=== PATIENT | female | born 1960 | race Caucasian/White ===

== ENCOUNTER 2017-01-26 04:14 | Inpatient (IN) | payer OTHER ==
[~2017-01-26] VITALS: Ht 165.1 cm; Wt 86.1 kg
[2017-01-26] VITALS (9 sets, daily range): BP systolic 102–149; BP diastolic 66–99; PULSE 66–79; RESP 16–21; TEMP 96.7–98.6; O2SAT 87–100
[2017-01-26] MEDS ORDERED: SODIUM CHLOR 0.9% 1000 ML INJ 1,000 ML IV SCH (04:22)
[2017-01-26] MEDS ORDERED: ONDANSETRON HCL 4 MG/2 ML VIAL ONE (04:22)
[2017-01-26] MEDS ORDERED: MULT1TAB46 (04:24)
--- NOTE | 2017-01-26 04:25 | PD ---
HPI Chief Complaint: abdominal pain Time Seen by Provider: 04:22 Travel History International Travel<30 days: No Contact w/Intl Traveler<30days: No Traveled to known affect area: No History of Present Illness HPI 56-year-old female presents to the emergency department by EMS transport for complaint of abdominal pain and vomiting since 8 PM on Friday evening. Bowel movement was on Friday. No report of hematemesis coffee-ground emesis melena or hematochezia. No reported fever or chills. No report of dietary indiscretion well water ingestion or foreign travel. Patient received Zofran en route by EMS during transport. Random glucose was 169. Patient denies any chronic medical conditions or chronic medication use or prescription medication use. Patient has had tubal ligation in the past and dental surgery. Visiting from [place]. Pain 03/20. Unable to identify alleviating factors unable to tolerate oral hydration. PFSH Past Medical History Narrative Medical Tubal ligation, tonsillectomy, dental surgery; nursing notes reviewed Social History Tobacco Use: Yes Allergies-Medications (Allergen,Severity, Reaction): Coded Allergies: Penicillin (Verified Allergy, Severe, 01/26/17) Reported Meds & Prescriptions Reported Meds & Active Scripts Active Reported Multi Vitamin Daily (Multiple Vitamin) 1 Tab Tab Narrative Medication No prescription medications Review of Systems Except as stated in HPI: all other systems reviewed are Neg General / Constitutional: No: Fever, Chills HENT: No: Congestion Cardiovascular: No: Chest Pain or Discomfort Respiratory: No: Shortness of Breath Gastrointestinal: Positive: Nausea, Vomiting, No: Loss of Appetite Genitourinary: No: Dysuria, Flank Pain Musculoskeletal: No: Myalgias, Arthralgias Skin: No Rash Neurologic: No: Weakness Psychiatric: No: Anxiety Hematologic/Lymphatic: No: Lymph Node Enlargement Physical Exam Narrative GENERAL: Well-developed well-nourished ill-appearing female in no acute respiratory distress holding emesis bag SKIN: Warm and dry. HEAD: Normocephalic. EYES: No scleral icterus. No injection or drainage. NECK: Supple, trachea midline. No JVD or lymphadenopathy. CARDIOVASCULAR: Regular rate and rhythm without murmurs, gallops, or rubs. RESPIRATORY: Breath sounds equal bilaterally. No accessory muscle use. GASTROINTESTINAL: Abdomen soft, diffusely tender primarily periumbilically, no guarding no rebound, nondistended. MUSCULOSKELETAL: No cyanosis, or edema. BACK: Nontender without obvious deformity. No CVA tenderness. Data Data Last Documented VS Vital Signs Date Time Temp Pulse Resp B/P Pulse Ox O2 Delivery O2 Flow Rate FiO2 01/26/17 06:00 79 16 148/66 100 Nasal Cannula 2 01/26/17 04:21 98.6 Orders Ondansetron Inj (Zofran Inj) (01/26/17 04:22) Ondansetron Inj (Zofran Inj) (01/26/17 04:30) Complete Blood Count With Diff (01/26/17 04:22) Comprehensive Metabolic Panel (01/26/17 04:22) Lipase (01/26/17 04:22) Urinalysis - C+S If Indicated (01/26/17 04:22) Iv Access Insert/Monitor (01/26/17 04:22) Ecg Monitoring (01/26/17 04:22) Oximetry (01/26/17 04:22) Sodium Chlor 0.9% 1000 Ml Inj (Ns 1000 M (01/26/17 04:22) Sodium Chloride 0.9% Flush (Ns Flush) (01/26/17 04:30) Electrocardiogram (01/26/17 04:22) Chest, Single Ap (01/26/17 04:22) Ct Abd/Pel W Iv Contrast(Rout) (01/26/17 ) Morphine Inj (Morphine Inj) (01/26/17 04:30) Iohexol 350 Inj (Omnipaque 350 Inj) (01/26/17 05:35) Morphine Inj (Morphine Inj) (01/26/17 05:45) Admit Order (Ed Use Only) (01/26/17 ) ^ Saline Lock (01/26/17 06:18) Resp Oxygen Jose Angel C Titrat 1-4 L (01/26/17 ) Notify Dr: Other (01/26/17 06:18) Sodium Chloride 0.9% Flush (Ns Flush) (01/26/17 09:00) Sodium Chloride 0.9% Flush (Ns Flush) (01/26/17 06:30) Labs Laboratory Tests Test 01/26/17 01/26/17 04:30 06:15 White Blood Count 16.1 TH/MM3 Red Blood Count 4.32 MIL/MM3 Hemoglobin 13.9 GM/DL Hematocrit 40.1 % Mean Corpuscular Volume 92.7 FL Mean Corpuscular Hemoglobin 32.2 PG Mean Corpuscular Hemoglobin 34.7 % Concent Red Cell Distribution Width 14.1 % Platelet Count 307 TH/MM3 Mean Platelet Volume 10.0 FL Neutrophils (%) (Auto) 84.5 % Lymphocytes (%) (Auto) 12.6 % Monocytes (%) (Auto) 2.4 % Eosinophils (%) (Auto) 0.0 % Basophils (%) (Auto) 0.5 % Neutrophils # (Auto) 13.6 TH/MM3 Lymphocytes # (Auto) 2.0 TH/MM3 Monocytes # (Auto) 0.4 TH/MM3 Eosinophils # (Auto) 0.0 TH/MM3 Basophils # (Auto) 0.1 TH/MM3 CBC Comment DIFF FINAL Differential Comment Sodium Level 141 MEQ/L Potassium Level 3.5 MEQ/L Chloride Level 107 MEQ/L Carbon Dioxide Level 20.1 MEQ/L Anion Gap 14 MEQ/L Blood Urea Nitrogen 15 MG/DL Creatinine 0.86 MG/DL Estimat Glomerular Filtration 69 ML/MIN Rate Random Glucose 151 MG/DL Calcium Level 8.9 MG/DL Total Bilirubin 0.4 MG/DL Aspartate Amino Transf 25 U/L (AST/SGOT) Alanine Aminotransferase 25 U/L (ALT/SGPT) Alkaline Phosphatase 76 U/L Total Protein 7.4 GM/DL Albumin 3.9 GM/DL Lipase 118 U/L Urine Color YELLOW Urine Turbidity CLEAR Urine pH 8.5 Urine Specific [place] GREATER THAN 1.050 Urine Protein 30 mg/dL Urine Glucose (UA) NEG mg/dL Urine Ketones 40 mg/dL Urine Occult Blood NEG Urine Nitrite NEG Urine Bilirubin NEG Urine Urobilinogen LESS THAN 2.0 MG/DL Urine Leukocyte Esterase NEG Urine RBC 2 /hpf Urine WBC LESS THAN 1 /hpf Urine Squamous Epithelial 1 /hpf Cells Microscopic Urinalysis Comment CULT NOT INDICATED MDM Medical Decision Making Medical Screen Exam Complete: Yes Emergency Medical Condition: Yes Medical Record Reviewed: Yes Interpretation(s) EKG: Normal sinus rhythm rate [address] elevation or injury pattern or ectopy noted nonspecific T-wave septally CBC & BMP Diagram 01/26/17 04:30 Vital Signs Date Time Temp Pulse Resp B/P Pulse Ox O2 Delivery O2 Flow Rate FiO2 01/26/17 04:21 98.6 78 20 144/99 100 UA: elevated sg greater than 1.035 Differential Diagnosis Abdominal pain, biliary colic, pancreatitis, gastritis, peptic ulcer disease, colitis, diverticulitis, appendicitis, bowel obstruction, renal colic Narrative Course IV access obtained by EMS specimens collected and sent for resulting patient administered 1 L normal saline additional 4 mg Zofran administered IV At 5:27 AM patient is in CT for imaging Patient is return from CT reports that pain is again returning no further nausea or vomiting after Zofran IV in the emergency department and one-time dose by EMS en route to the hospital; patient has received a liter of normal saline. Patient reports pain is becoming more infraumbilical. Pain is remaining midline. Tender to palpation without guarding or rebound. CT imaging reported as consistent with possible early small bowel obstruction. Patient with leukocytosis vomiting without bowel movement imaging study consistent with possible early small bowel obstruction(/ileus) well discussed with medicine regarding admission for bowel rest as needed anti-medic and pain medication with patient aware that should symptoms persist or worsen will require placement of NG tube to intermittent low wall suction and surgical consult. Sepsis Criteria SIRS Criteria (2 or more): WBC > 62805, < 4000 or > 10% bands Physician Communication Physician Communication call placed to [facility] obs --early sbo Diagnosis Primary Impression: Small bowel obstruction, partial Admitting Information Admitting Physician Requests: Observation Gladys Pritchard MD Jan 26, 2017 04:25
[2017-01-26] MEDS ORDERED: ONDANSETRON HCL 4 MG/2 ML VIAL IV PUSH ONE (04:30)
[2017-01-26] MEDS ORDERED: SODIUM CHLORIDE 0.9% FLUSH 10 ML FLUSH IV FLUSH PRN ×2 (04:30→06:30)
[2017-01-26] MEDS ORDERED: MORPHINE SULFATE 4 MG/ML INJ IV PUSH ONE ×2 (04:30→05:45)
[2017-01-26 04:47] LABS: AUTOMATED NEUTROPHIL # 13.6 TH/MM3 (1.8-7.7); BASOPHIL # 0.1 TH/MM3 (0-0.2); BASOPHIL % 0.5 % (0.0-2.0); HEMATOCRIT 40.1 % (35.0-46.0); HEMO FLAGS DIFF FINAL; LYMPH % 12.6 % (9.0-44.0); MEAN CELL VOLUME 92.7 FL (80.0-100.0); MEAN CORPUSCULAR HEMOGLOBIN 32.2 PG (27.0-34.0); MEAN CORPUSCULAR HGB CONC 34.7 % (32.0-36.0); MONO % 2.4 % (0.0-8.0); NEUT % 84.5 % (16.0-70.0); PLATELET COUNT 307 TH/MM3 (150-450); RED BLOOD COUNT 4.32 MIL/MM3 (4.00-5.30); RED CELL DISTRIBUTION WIDTH 14.1 % (11.6-17.2); WHITE BLOOD COUNT 16.1 TH/MM3 (4.0-11.0)
--- NOTE | 2017-01-26 04:58 | RADRPT ---
EXAM DATE/TIME: 01/26/2017 04:18 [facility] COMPARISON: No previous studies available for comparison. INDICATIONS : Pt has had nausea with vomiting and abdominal pain since 20:00 last night. MEDICAL HISTORY : None. SURGICAL HISTORY : Tubal ligation. ENCOUNTER: Initial ACUITY: 1 day PAIN SCORE: 9/10 LOCATION: Bilateral chest FINDINGS: Single upright AP view of the chest. Lungs are clear. Cardiomediastinal silhouette within normal limi ts. No evidence of pleural effusion or pneumothorax. No evidence of free air under the diaphragm. CONCLUSION: No acute cardiopulmonary disease identified. Sukhdev Cash MD on January 26, 2017 at 4:55 Board Certified Radiologist. This report was verified electronically.
[2017-01-26 05:12] LABS: ANION GAP 14 MEQ/L (5-15); AST (GOT) 25 U/L (15-37); BICARBONATE 20.1 MEQ/L (21.0-32.0); BLOOD UREA NITROGEN 15 MG/DL (7-18); CHLORIDE 107 MEQ/L (98-107); GLOMERULAR FILTRATION RATE 69 ML/MIN (>89); POTASSIUM 3.5 MEQ/L (3.5-5.1); SODIUM (NA) 141 MEQ/L (136-145)
[2017-01-26 05:16] LABS: ALKALINE PHOSPHATASE 76 U/L (45-117); ALT (GPT) 25 U/L (10-53); TOTAL BILIRUBIN ADULT 0.4 MG/DL (0.2-1.0)
[2017-01-26] MEDS ORDERED: IOHEXOL 350 MG/ML 10 ML VIAL (for RAD DIAG) IV ONE (05:35)
--- NOTE | 2017-01-26 06:00 | RADRPT ---
EXAM DATE/TIME: 01/26/2017 05:32 [facility] COMPARISON: No previous studies available for comparison. INDICATIONS : Abdomen pain with vomiting. IV CONTRAST: 96 cc Omnipaque 350 (iohexol) IV ORAL CONTRAST: No oral contrast ingested. RADIATION DOSE: 4.48 CTDIvol (mGy) MEDICAL HISTORY : None SURGICAL HISTORY : None. ENCOUNTER: Initial ACUITY: 1 day PAIN SCALE: 8/10 LOCATION: abdomen TECHNIQUE: Volumetric scanning of the abdomen and pelvis was performed. Using automated exposure control and ad justment of the mA and/or kV according to patient size, radiation dose was kept as low as reasonably achievable to obtain optimal diagnostic quality images. FINDINGS: LOWER LUNGS: The visualized lower lungs are clear. LIVER: Homogeneous density without lesion. There is no dilation of the biliary tree. No calcified gallston es. SPLEEN: Normal size without lesion. PANCREAS: Within normal limits. KIDNEYS: Normal in size and shape. There is no mass, stone or hydronephrosis. ADRENAL GLANDS: Within normal limits. VASCULAR: There is no aortic aneurysm. BOWEL/MESENTERY: Multiple fluid filled mildly dilated loops of mid small bowel measuring up to 2.6 cm in diameter. The re is a transition point in the distal small bowel is decompressed. Proximal small bowel is also norm al diameter. Appendix within normal limits. No evidence of free air. Small amount of free fluid in th e dependent portion of the pelvis. ABDOMINAL WALL: Within normal limits. RETROPERITONEUM: There is no lymphadenopathy. BLADDER: No wall thickening or mass. REPRODUCTIVE: Within normal limits. INGUINAL: There is no lymphadenopathy or hernia. MUSCULOSKELETAL: Degenerative findings of the lumbar spine facet joints and left sacroiliac joint. CONCLUSION: Mild fluid filled dilatation of multiple mid small bowel loops with a transition point and decompress ed distal small bowel. Findings are suspicious for early small bowel obstruction. Sukhdev Cash MD on January 26, 2017 at 5:50 Board Certified Radiologist. This report was verified electronically.
[2017-01-26] MEDS ORDERED: BISACODYL 10 MG SUPP RECTAL PRN (06:30)
[2017-01-26] MEDS ORDERED: MORPHINE SULFATE 4 MG/ML INJ IV PRN (06:30)
[2017-01-26] MEDS ORDERED: MAGNESIUM HYDROXIDE SUSP 30 ML CUP PO PRN (06:30)
[2017-01-26] MEDS ORDERED: SENNOSIDES 8.6 MG TAB PO PRN (06:30)
[2017-01-26] MEDS ORDERED: ACETAMINOPHEN 1000 MG/100 ML VIAL IV PRN (06:30)
[2017-01-26] MEDS ORDERED: PANTOPRAZOLE SODIUM 40 MG VIAL IV PUSH ONE (06:30)
[2017-01-26] MEDS ORDERED: SODIUM CHLORIDE 0.9% FLUSH 10 ML FLUSH IVF PRN (06:30)
[2017-01-26] MEDS ORDERED: LACTULOSE SYRUP 20 GM/30 ML CUP PO PRN (06:30)
[2017-01-26] MEDS: SODIUM CHLOR 0.9% 1000 ML INJ 1,000 ML IV SCH ×3 (06:47→20:24)
[2017-01-26 06:58] LABS: BLOOD, URINE NEG (NEG); GLUCOSE,URINE NEG (NEG); KETONE, URINE 40 mg/dL (NEG); NITRITE,URINE NEG (NEG); PH, URINE 8.5 (5.0-8.5); SQUAMOUS EPITHELIAL CELL URINE 1 /hpf (0-5); URINE COLOR YELLOW (YELLW/STRAW)
[2017-01-26 06:59] LABS: COMMENT (UR) CULT NOT INDICATED; CULTURE IF INDICATED CULT NOT INDICATED
[2017-01-26] MEDS: DOCUSATE SODIUM 50 MG/SENNA 8.6 MG TAB PO SCH ×2 (09:00→20:21)
[2017-01-26] MEDS ORDERED: SODIUM CHLORIDE 0.9% FLUSH 10 ML FLUSH IV FLUSH SCH (09:00)
[2017-01-26] MEDS: CIPROFLOXACIN 400 MG PREMIX 200 ML IV SCH ×2 (09:15→20:20)
[2017-01-26] MEDS: metroNIDAZOLE 500 MG INJ 100 ML IV SCH ×2 (09:16→14:44)
[2017-01-26] MEDS: SODIUM CHLORIDE 0.9% FLUSH 10 ML FLUSH IV FLUSH SCH ×2 (09:16→20:24)
[2017-01-26] MEDS: MORPHINE SULFATE 4 MG/ML INJ IV PRN ×3 (09:30→18:28)
--- NOTE | 2017-01-26 12:11 | EKG ---
Date Performed: 01/26/2017 Time Performed: 04:36:09 PTAGE: 56 years EKG: Sinus rhythm NORMAL ECG NO PREVIOUS TRACING DOCTOR: Benito Payne Interpretating Date/Time 01/26/2017 12:09:58
[2017-01-26] MEDS: ONDANSETRON HCL 4 MG/2 ML VIAL IVP PRN (14:50)
[2017-01-26] MEDS: PANTOPRAZOLE SODIUM 40 MG VIAL IV PUSH SCH (20:20)
[2017-01-27] MEDS: MORPHINE SULFATE 4 MG/ML INJ IV PRN ×4 (00:38→21:40)
[2017-01-27] MEDS: metroNIDAZOLE 500 MG INJ 100 ML IV SCH ×4 (00:40→23:49)
[2017-01-27 00:49] VITALS: BP 128/70; PULSE 75; RESP 17; TEMP 97.6; O2SAT 98
[2017-01-27 04:11] VITALS: BP 123/67; PULSE 80; RESP 17; TEMP 99; O2SAT 96
[2017-01-27 06:21] LABS: AUTOMATED NEUTROPHIL # 10.3 TH/MM3 (1.8-7.7); BASOPHIL # 0.1 TH/MM3 (0-0.2); BASOPHIL % 0.5 % (0.0-2.0); EOSINOPHIL # 0.1 TH/MM3 (0-0.4); EOSINOPHIL % 0.5 % (0.0-4.0); HEMO FLAGS DIFF FINAL; LYMPH % 22.8 % (9.0-44.0); LYMPHOCYTE # 3.4 TH/MM3 (1.0-4.8); MEAN CELL VOLUME 94.6 FL (80.0-100.0); MEAN CORPUSCULAR HEMOGLOBIN 30.8 PG (27.0-34.0); MEAN CORPUSCULAR HGB CONC 32.5 % (32.0-36.0); MONO % 7.2 % (0.0-8.0); PLATELET COUNT 222 TH/MM3 (150-450); RED BLOOD COUNT 3.91 MIL/MM3 (4.00-5.30); RED CELL DISTRIBUTION WIDTH 14.4 % (11.6-17.2); WHITE BLOOD COUNT 14.9 TH/MM3 (4.0-11.0)
[2017-01-27 06:48] LABS: ALKALINE PHOSPHATASE 66 U/L (45-117); ALT (GPT) 20 U/L (10-53); ANION GAP 7 MEQ/L (5-15); AST (GOT) 20 U/L (15-37); BICARBONATE 26.4 MEQ/L (21.0-32.0); BLOOD UREA NITROGEN 11 MG/DL (7-18); CHLORIDE 108 MEQ/L (98-107); GLOMERULAR FILTRATION RATE 95 ML/MIN (>89); POTASSIUM 4.1 MEQ/L (3.5-5.1); SODIUM (NA) 141 MEQ/L (136-145); TOTAL BILIRUBIN ADULT 0.4 MG/DL (0.2-1.0)
[2017-01-27 08:00] VITALS: BP 121/80; PULSE 80; RESP 17; TEMP 99.9; O2SAT 96
--- NOTE | 2017-01-27 08:24 | HHI.HP ---
[facility] Service [facility] ([place], [place])ists Primary Care Physician No Primary Care Physician Admission Diagnosis vomiting; early sbo Diagnoses: Chief Complaint: Abdominal pain, nausea, vomiting. Travel History International Travel<30 Days: No Contact w/Intl Traveler <30 Da: No Traveled to Known Affected Are: No Sepsis Criteria SIRS Criteria (2 or more): WBC > 40328, < 4000 or > 10% bands History of Present Illness Ms. Mclean is a pleasant 56-year-old female with no significant medical history who presented to the emergency department on 01/26/2017 due to abdominal pain and vomiting. On 01/25/2017 at around 8:30 PM after dinner patient started having stabbing lower abdominal pain radiating to her back as well as nausea and vomiting. After initial nausea vomiting she felt slightly better but her symptoms returned. She vomited about 6 times. Due to persistent symptoms patient decided to come to the emergency department. Her last bowel movement was on or Friday (01/23 or 01/24/2017). Electrolytes within normal range. CBC indicated leukocytosis with WBC count 14.9. Patient was started on Cipro, Flagyl, IV fluid. CT abdomen pelvis indicated early small bowel obstruction. Patient denies any chest pain, shortness of breath, fever or chills. Denies any changes in bladder habits. Currently she does not have nausea or vomiting and pain is well controlled. Review of Systems Except as stated in HPI: all other systems reviewed are Neg Past Family Social History Past Medical History No significant medical history Past Surgical History Tubal ligation Tonsillectomy [place] tooth removal Reported Medications Patient takes Zyrtec and multivitamins daily. Allergies: Coded Allergies: Penicillin (Verified Allergy, Severe, 01/26/17) Family History Mothercolon cancer in her 70s, diabetes mellitus, COPD. Fatherheart disease in his 60s. Social History Patient reports smoking half a pack a day. Drinks socially. Denies using illicit drugs. Physical Exam Vital Signs Vital Signs Date Time Temp Pulse Resp B/P Pulse Ox O2 Delivery O2 Flow Rate FiO2 01/27/17 08:00 99.9 80 17 121/80 96 01/27/17 04:11 99.0 80 17 123/67 96 01/27/17 00:49 97.6 75 17 128/70 98 01/26/17 20:50 98.2 69 17 128/67 98 01/26/17 16:00 96.7 71 18 122/71 99 01/26/17 12:00 97.0 74 18 102/68 97 Physical Exam GENERAL: This is a well-nourished, well-developed patient, in no apparent distress. SKIN: No rashes, ecchymoses or lesions. Warm and dry. HEAD: Atraumatic. Normocephalic. No temporal or scalp tenderness. EYES: Pupils equal round and reactive. No injection or drainage. ENT: Nose without bleeding, purulent drainage or septal hematoma. Airway patent. NECK: Trachea midline. No lymphadenopathy. Supple, nontender, no meningeal signs. CARDIOVASCULAR: Regular rate and rhythm without murmurs, gallops, or rubs. No JVD. RESPIRATORY: Moderate air entry. Breath sounds equal bilaterally. No wheezes, rales, or rhonchi. GASTROINTESTINAL: Abdomen soft, somewhat tender to palpation in the lower abdomen, nondistended. No guarding. Hypoactive bowel sounds. MUSCULOSKELETAL: Extremities without clubbing, cyanosis, or edema. NEUROLOGICAL: Awake and alert. Cranial nerves II through XII intact. No focal neurological deficits. Normal speech. Laboratory Laboratory Tests Test 01/27/17 05:38 White Blood Count 14.9 Red Blood Count 3.91 Hemoglobin 12.0 Hematocrit 37.0 Mean Corpuscular Volume 94.6 Mean Corpuscular Hemoglobin 30.8 Mean Corpuscular Hemoglobin 32.5 Concent Red Cell Distribution Width 14.4 Platelet Count 222 Mean Platelet Volume 9.9 Neutrophils (%) (Auto) 69.0 Lymphocytes (%) (Auto) 22.8 Monocytes (%) (Auto) 7.2 Eosinophils (%) (Auto) 0.5 Basophils (%) (Auto) 0.5 Neutrophils # (Auto) 10.3 Lymphocytes # (Auto) 3.4 Monocytes # (Auto) 1.1 Eosinophils # (Auto) 0.1 Basophils # (Auto) 0.1 CBC Comment DIFF FINAL Differential Comment Sodium Level 141 Potassium Level 4.1 Chloride Level 108 Carbon Dioxide Level 26.4 Anion Gap 7 Blood Urea Nitrogen 11 Creatinine 0.65 Estimat Glomerular Filtration 95 Rate Random Glucose 102 Calcium Level 8.4 Total Bilirubin 0.4 Aspartate Amino Transf 20 (AST/SGOT) Alanine Aminotransferase 20 (ALT/SGPT) Alkaline Phosphatase 66 Total Protein 6.2 Albumin 3.2 Result Diagram: 01/27/17 0538 01/27/17 0538 Imaging Last Impressions Chest X-Ray 01/26/17 0422 Signed Impressions: Service Date/Time: Thursday, January 26, 2017 04:18 - CONCLUSION: No acute cardiopulmonary disease identified. Sukhdev Cash MD Abdomen/Pelvis CT 01/26/17 0000 Signed Impressions: Service Date/Time: Thursday, January 26, 2017 05:32 - CONCLUSION: Mild fluid filled dilatation of multiple mid small bowel loops with a transition point and decompressed distal small bowel. Findings are suspicious for early small bowel obstruction. Sukhdev Cash MD Assessment and Plan Problem List: (1) Small bowel obstruction, partial ICD Code: K56.69 Status: Acute (2) Tobacco abuse ICD Code: Z72.0 Status: Acute Assessment and Plan Ms. Mclean is a pleasant 56-year-old female with no significant medical history who presented to the emergency department on 01/26/2017 due to abdominal pain and vomiting that started on 01/25/2017. Patient denies any chest pain, shortness of breath, fever or chills. Electrolytes within normal range. CBC indicated leukocytosis with WBC count 14.9. Patient was started on Cipro, Flagyl, IV fluid. CT abdomen pelvis indicated early small bowel obstruction. - Small bowel obstruction - Etiology unknown. Patient has a history of tubal ligation in the past. Colonoscopy 6 years ago. - Continue IV fluid normal saline at 100 cc per hour. - We'll continue antibiotics Cipro and Flagyl for now. - Surgery consultation. - Zofran for nausea/vomiting. Morphine for pain. - Tobacco abuse - counseled patient regarding tobacco cessation. Full code. SCDs, Ambulation. Physician Certification 2 Midnight Certification Type: Admission for Inpatient Services Order for Inpatient Services The services are ordered in accordance with Medicare regulations or non- Medicare payer requirements, as applicable. In the case of services not specified as inpatient-only, they are appropriately provided as inpatient services in accordance with the 2-midnight benchmark. Estimated LOS (days): 2 days is the estimated time the patient will need to remain in the hospital, assuming treatment plan goals are met and no additional complications. Post-Hospital Plan: Home Gretta Abad DO Jan 27, 2017 08:24
[2017-01-27] MEDS: CIPROFLOXACIN 400 MG PREMIX 200 ML IV SCH ×2 (08:43→21:40)
[2017-01-27] MEDS: PANTOPRAZOLE SODIUM 40 MG VIAL IV PUSH SCH ×2 (08:44→21:41)
[2017-01-27] MEDS: DOCUSATE SODIUM 50 MG/SENNA 8.6 MG TAB PO SCH ×2 (08:44→21:41)
[2017-01-27] MEDS: SODIUM CHLORIDE 0.9% FLUSH 10 ML FLUSH IV FLUSH SCH ×2 (08:44→21:40)
--- NOTE | 2017-01-27 11:29 | PD.CONS ---
cc: Bradly Wall MD [facility] Service General Surgery Consult Requested By Dr. Abad Reason for Consult Abdominal pain/Nausea/Vomiting Primary Care Physician No Primary Care Physician History of Present Illness This is a 56 year old female on vacation from [place] with no past medical history who developed abdominal pain Friday around 8PM after dinner. The pain is 6/10 , diffuse, achy, better with sitting still, worse with eating. She had chicken , mashed potatoes and a pecan roll. Other people in her family had the same thing and are not sick. She denies any sick contacts. She had just spent the prior 5 days at [employer] She reports abdominal pain with multiple episodes of vomiting. She came to the Emergency Department for evaluation due to the increase in intensity of pain. A CT abd/pelvis was completed with IV contrast only that showed dilation of small bowel loops with a transition point and decompressed distal bowel. She reports occasional burping. She had not passed gas. Her last bowel movement was on Friday which was normal. She had not had any emesis since Friday at 4am. A General Surgery consultation has been requested for evaluation of abdominal pain with nausea and vomiting. Review of Systems Constitutional: COMPLAINS OF: Chills, DENIES: Fatigue Endocrine: DENIES: Polydipsia, Polyuria, Polyphagia Eyes: DENIES: Blurred vision, Diplopia Ears, nose, mouth, throat: DENIES: Tinnitus Respiratory: DENIES: Cough, Snoring Cardiovascular: DENIES: Chest pain Gastrointestinal: COMPLAINS OF: Abdominal pain, Nausea, Vomiting Genitourinary: DENIES: Urinary frequency, Urinary incontinence Musculoskeletal: DENIES: Joint pain Integumentary: DENIES: Abnormal pigmentation Hematologic/lymphatic: DENIES: Bruising Immunologic/allergic: DENIES: Eczema Neurologic: DENIES: Headache, Localized weakness Psychiatric: DENIES: Mood changes, Depression, Hallucinations Past Family Social History Past Medical History None Past Surgical History Tubal ligation [place] teeth removal Tonsillectomy Reported Medications Daily multivitamin Calcium supplement Allergies: Coded Allergies: Penicillin (Verified Allergy, Severe, 01/26/17) Active Ordered Medications Current Medications Medications (Trade) Dose Ordered Sig/Reed Route Start Time Stop Time Status Last Admin (NS 1000 ml Inj) 1,000 ml @ 100 mls/hr Q10H IV 01/26/17 06:20 01/26/17 20:24 (NS Flush) 2 ml UNSCH PRN IV FLUSH 01/26/17 06:30 (NS Flush) 2 ml BID IV FLUSH 01/26/17 09:00 01/27/17 08:44 (Zofran Inj) 4 mg Q6H PRN IVP 01/26/17 06:30 01/26/17 14:50 (Morphine Inj) 1 mg Q3H PRN IV 01/26/17 06:30 (Morphine Inj) 2 mg Q3H PRN IV 01/26/17 06:30 01/27/17 08:45 (Ashley-Colace) 1 tab BID PO 01/26/17 09:00 01/27/17 08:44 (Milk Of Magnesia Liq) 30 ml Q12H PRN PO 01/26/17 06:30 (Senokot) 17.2 mg Q12H PRN PO 01/26/17 06:30 (Dulcolax Supp) 10 mg DAILY PRN RECTAL 01/26/17 06:30 (Lactulose Liq) 30 ml DAILY PRN PO 01/26/17 06:30 Pantoprazole Sodium 40 mg 40 mg Q12H IV PUSH 01/26/17 21:00 01/27/17 08:44 Ciprofloxacin/ Dextrose 200 ml @ 200 mls/hr Q12H IV 01/26/17 08:00 01/27/17 08:43 (Flagyl 500 Mg Inj) 100 ml @ 100 mls/hr Q8H IV 01/26/17 08:00 01/27/17 08:43 Family History Mother---colon cancer in her 70s; DM; COPD Father-- heart disease Social History + Tobacco use-- smokes 1/2 pack daily + ETOH--occasional; socially; not daily Denies illicit drug use Physical Exam Vital Signs Vital Signs Date Time Temp Pulse Resp B/P Pulse Ox O2 Delivery O2 Flow Rate FiO2 01/27/17 08:14 Nasal Cannula 01/27/17 08:00 99.9 80 17 121/80 96 01/27/17 04:11 99.0 80 17 123/67 96 01/27/17 00:49 97.6 75 17 128/70 98 01/26/17 20:50 98.2 69 17 128/67 98 01/26/17 16:00 96.7 71 18 122/71 99 01/26/17 12:00 97.0 74 18 102/68 97 Physical Exam GENERAL: Pleasant 56 year old female resting in bed in no acute distress. SKIN: Warm and dry. HEAD: Atraumatic. Normocephalic. EYES: Pupils equal and round. No scleral icterus. No injection or drainage. ENT: No nasal bleeding or discharge. Mucous membranes pink and moist. NECK: Trachea midline. CARDIOVASCULAR: Regular rate and rhythm. RESPIRATORY: No accessory muscle use. Clear to auscultation. Breath sounds equal bilaterally. GASTROINTESTINAL: Abdomen soft, non-tender, nondistended. MUSCULOSKELETAL: Extremities without clubbing, cyanosis, or edema. No obvious deformities. NEUROLOGICAL: Awake and alert. No obvious cranial nerve deficits. Motor grossly within normal limits. Five out of 5 muscle strength in the arms and legs. Normal speech. PSYCHIATRIC: Appropriate mood and affect; insight and judgment normal. Laboratory Laboratory Tests Test 01/27/17 05:38 White Blood Count 14.9 Red Blood Count 3.91 Hemoglobin 12.0 Hematocrit 37.0 Mean Corpuscular Volume 94.6 Mean Corpuscular Hemoglobin 30.8 Mean Corpuscular Hemoglobin 32.5 Concent Red Cell Distribution Width 14.4 Platelet Count 222 Mean Platelet Volume 9.9 Neutrophils (%) (Auto) 69.0 Lymphocytes (%) (Auto) 22.8 Monocytes (%) (Auto) 7.2 Eosinophils (%) (Auto) 0.5 Basophils (%) (Auto) 0.5 Neutrophils # (Auto) 10.3 Lymphocytes # (Auto) 3.4 Monocytes # (Auto) 1.1 Eosinophils # (Auto) 0.1 Basophils # (Auto) 0.1 CBC Comment DIFF FINAL Differential Comment Sodium Level 141 Potassium Level 4.1 Chloride Level 108 Carbon Dioxide Level 26.4 Anion Gap 7 Blood Urea Nitrogen 11 Creatinine 0.65 Estimat Glomerular Filtration 95 Rate Random Glucose 102 Calcium Level 8.4 Total Bilirubin 0.4 Aspartate Amino Transf 20 (AST/SGOT) Alanine Aminotransferase 20 (ALT/SGPT) Alkaline Phosphatase 66 Total Protein 6.2 Albumin 3.2 Result Diagram: 01/29/17 1047 01/29/17 1047 Imaging Last 48 hours Impressions Chest X-Ray 01/26/17 0422 Signed Impressions: Service Date/Time: Thursday, January 26, 2017 04:18 - CONCLUSION: No acute cardiopulmonary disease identified. Sukhdev Cash MD Abdomen/Pelvis CT 01/26/17 0000 Signed Impressions: Service Date/Time: Thursday, January 26, 2017 05:32 - CONCLUSION: Mild fluid filled dilatation of multiple mid small bowel loops with a transition point and decompressed distal small bowel. Findings are suspicious for early small bowel obstruction. Sukhdev Cash MD Assessment and Plan Assessment and Plan 56 year old female with a two day history of abdominal pain/nausea/vomiting -CT abd/pelvis reviewed -NPO; okay for ice chips -NGT if nausea/vomiting occur -OOB and mobilize -Cipro/Flagyl ordered -IVF -SBFT in the morning -We will attempt non operative treatment -Thank you for this consult; we will continue to follow along Discussed Condition With Dr. Duke Mclean Attestation The exam, history, and the medical decision-making described in the above note were completed with the assistance of the mid-level provider. I reviewed and agree with the findings presented. I attest that I had a [id number] encounter with the patient on the same day, and personally performed and documented my assessment and findings in the medical record. Lora Miller Jan 27, 2017 11:29 Bradly Wall MD Jan 31, 2017 11:11
[2017-01-27 11:30] VITALS: BP 116/69; PULSE 66; RESP 17; TEMP 99.1; O2SAT 95
[2017-01-27] MEDS: SODIUM CHLOR 0.9% 1000 ML INJ 1,000 ML IV SCH ×2 (12:20→22:20)
[2017-01-27 16:00] VITALS: BP 120/74; PULSE 71; RESP 17; TEMP 97.5; O2SAT 96
[2017-01-27 19:30] VITALS: BP 122/72; PULSE 70; RESP 16; TEMP 99.3; O2SAT 96
[2017-01-28] VITALS: BP 113/67; PULSE 74; RESP 16; TEMP 97.4; O2SAT 96
[2017-01-28] MEDS: MORPHINE SULFATE 4 MG/ML INJ IV PRN ×2 (03:22→10:48)
[2017-01-28 03:59] VITALS: BP 120/64; PULSE 82; RESP 16; TEMP 98.2; O2SAT 96
[2017-01-28 07:50] VITALS: BP 121/72; PULSE 78; RESP 18; TEMP 97.5; O2SAT 96
[2017-01-28] MEDS: SODIUM CHLOR 0.9% 1000 ML INJ 1,000 ML IV SCH ×2 (08:20→18:20)
[2017-01-28] MEDS: CIPROFLOXACIN 400 MG PREMIX 200 ML IV SCH ×2 (08:34→20:51)
[2017-01-28] MEDS: metroNIDAZOLE 500 MG INJ 100 ML IV SCH ×2 (08:34→17:08)
[2017-01-28] MEDS: PANTOPRAZOLE SODIUM 40 MG VIAL IV PUSH SCH ×2 (08:35→20:51)
[2017-01-28] MEDS: DOCUSATE SODIUM 50 MG/SENNA 8.6 MG TAB PO SCH ×2 (08:35→20:52)
[2017-01-28] MEDS: SODIUM CHLORIDE 0.9% FLUSH 10 ML FLUSH IV FLUSH SCH ×2 (08:37→20:51)
[2017-01-28] MEDS ORDERED: DIATRIZOATE MEGLUM/DIATRIZOATE SOD 120 ML BTL (for RAD DIAG) PO ONE (09:00)
[2017-01-28] MEDS: ONDANSETRON HCL 4 MG/2 ML VIAL IVP PRN (10:46)
[2017-01-28 11:56] VITALS: BP 112/72; PULSE 71; RESP 18; TEMP 98.5; O2SAT 96
[2017-01-28] MEDS ORDERED: MORPHINE SULFATE 4 MG/ML INJ IV PRN (12:30)
[2017-01-28] MEDS ORDERED: MORPHINE SULFATE 8 MG/ML INJ IV PUSH PRN (13:00)
--- NOTE | 2017-01-28 13:13 | HHI.PR ---
Subjective Subjective Notes Resting in bed Has not passed gas Objective Vitals/I&O Vital Signs Date Time Temp Pulse Resp B/P Pulse Ox O2 Delivery O2 Flow Rate FiO2 01/28/17 11:56 98.5 71 18 112/72 96 01/27/17 08:14 Nasal Cannula 01/26/17 06:00 2 Radiology Last 48 hours Impressions Chest X-Ray 01/26/17 0422 Signed Impressions: Service Date/Time: Thursday, January 26, 2017 04:18 - CONCLUSION: No acute cardiopulmonary disease identified. Sukhdev Cash MD Abdomen/Pelvis CT 01/26/17 0000 Signed Impressions: Service Date/Time: Thursday, January 26, 2017 05:32 - CONCLUSION: Mild fluid filled dilatation of multiple mid small bowel loops with a transition point and decompressed distal small bowel. Findings are suspicious for early small bowel obstruction. Sukhdev Cash MD Cardiovascular: Regular Lungs: Clear Abdomen: Non-distended, Other (minimal tenderness around umbilicus ) Extremities: No edema A/P Assessment and Plan 56 year old female with SBO -SBFT today -WIll follow up on XRs -Pain control -OOB and mobilize as tolerated Attending Statement patient seen at bedside as above no bm await sbft Attestation The exam, history, and the medical decision-making described in the above note were completed with the assistance of the mid-level provider. I reviewed and agree with the findings presented. I attest that I had a [id number] encounter with the patient on the same day, and personally performed and documented my assessment and findings in the medical record. Lora Miller Jan 28, 2017 13:13 Bradly Wall MD Feb 04, 2017 22:41
[2017-01-28 16:00] VITALS: BP 97/59; PULSE 76; RESP 18; TEMP 97.9; O2SAT 99
[2017-01-28 19:15] VITALS: BP 104/64; PULSE 69; RESP 18; TEMP 96.7; O2SAT 99
--- NOTE | 2017-01-28 19:25 | HHI.PR ---
Subjective Remarks Follow up for SBO. Patient reports nausea but no vomiting. No fever, chills. Denies any chest pain, shortness of breath. Was able to start Gastrografin directed small bowel follow thru. No BM or flatus. Later in the day, patient had an episode of vomiting. We wanted to place NG tube. However, her vomiting stopped and we postponed our plan to insert NG tube. Objective Vitals Vital Signs Date Time Temp Pulse Resp B/P Pulse Ox O2 Delivery O2 Flow Rate FiO2 01/28/17 16:00 97.9 76 18 97/59 99 01/28/17 11:56 98.5 71 18 112/72 96 01/28/17 07:50 97.5 78 18 121/72 96 01/28/17 03:59 98.2 82 16 120/64 96 01/28/17 00:00 97.4 74 16 113/67 96 01/27/17 19:30 99.3 70 16 122/72 96 I/O 01/27/17 01/27/17 01/27/17 01/28/17 01/28/17 01/28/17 07:00 15:00 23:00 07:00 15:00 23:00 Intake Total 2441 ml 0 ml 0 ml Balance 2441 ml 0 ml 0 ml Intake Oral 0 ml 0 ml 0 ml IV Total 2441 ml # Voids 3 3 2 2 3 # Bowel Movements 0 0 0 0 8 Result Diagram: 01/27/17 0538 01/27/17 0538 Imaging Last Impressions Chest X-Ray 01/26/17 0422 Signed Impressions: Service Date/Time: Thursday, January 26, 2017 04:18 - CONCLUSION: No acute cardiopulmonary disease identified. Sukhdev Cash MD Abdomen/Pelvis CT 01/26/17 0000 Signed Impressions: Service Date/Time: Thursday, January 26, 2017 05:32 - CONCLUSION: Mild fluid filled dilatation of multiple mid small bowel loops with a transition point and decompressed distal small bowel. Findings are suspicious for early small bowel obstruction. Sukhdev Cash MD Objective Remarks GENERAL: AOx3, NAD. SKIN: Warm and dry. HEAD: Normocephalic. EYES: No scleral icterus. No injection or drainage. NECK: Supple, trachea midline. No JVD or lymphadenopathy. CARDIOVASCULAR: Regular rate and rhythm without murmurs, gallops, or rubs. RESPIRATORY: Breath sounds equal bilaterally. No accessory muscle use. GASTROINTESTINAL: Abdomen firm, somewhat distended and tender to palpation joe over lower quadrants. No appreciable bowel sound. MUSCULOSKELETAL: No cyanosis, or edema. BACK: Nontender without obvious deformity. No CVA tenderness. A/P Problem List: (1) Small bowel obstruction, partial ICD Code: K56.69 Status: Acute (2) Tobacco abuse ICD Code: Z72.0 Status: Acute Assessment and Plan Ms. Mclean is a pleasant 56-year-old female with no significant medical history who presented to the emergency department on 01/26/2017 due to abdominal pain and vomiting that started on 01/25/2017. Patient denies any chest pain, shortness of breath, fever or chills. Electrolytes within normal range. CBC indicated leukocytosis with WBC count 14.9. Patient was started on Cipro, Flagyl, IV fluid. CT abdomen pelvis indicated early small bowel obstruction. - Small bowel obstruction - Etiology unknown. Patient has a history of tubal ligation in the past. Colonoscopy 6 years ago. - Continue IV fluid normal saline at 100 cc per hour. - We'll continue antibiotics Cipro and Flagyl for now. - Surgery following. - Small bowel follow through in progress. Hopefully this results in bowel movement and resolution of SBO. - Zofran for nausea/vomiting. Morphine for pain. - Tobacco abuse - counseled patient regarding tobacco cessation. Full code. SCDs, Ambulation. Gretta Abad DO Jan 28, 2017 19:25
[2017-01-29 00:05] VITALS: BP 100/60; PULSE 68; RESP 19; TEMP 96.9; O2SAT 95
[2017-01-29] MEDS: metroNIDAZOLE 500 MG INJ 100 ML IV SCH ×2 (00:59→10:10)
[2017-01-29 04:01] VITALS: BP 104/64; PULSE 73; RESP 18; TEMP 96.4; O2SAT 95
[2017-01-29] MEDS: SODIUM CHLOR 0.9% 1000 ML INJ 1,000 ML IV SCH ×2 (04:20→14:20)
[2017-01-29 07:36] VITALS: BP 108/68; PULSE 71; RESP 18; TEMP 97.6; O2SAT 95
--- NOTE | 2017-01-29 07:42 | HHI.PR ---
Subjective Remarks Follow up for small bowel obstruction. Objective Vitals Vital Signs Date Time Temp Pulse Resp B/P Pulse Ox O2 Delivery O2 Flow Rate FiO2 01/29/17 07:36 97.6 71 18 108/68 95 01/29/17 04:01 96.4 73 18 104/64 95 01/29/17 00:05 96.9 68 19 100/60 95 01/28/17 19:15 96.7 69 18 104/64 99 01/28/17 16:00 97.9 76 18 97/59 99 01/28/17 11:56 98.5 71 18 112/72 96 01/28/17 07:50 97.5 78 18 121/72 96 I/O 01/28/17 01/28/17 01/28/17 01/29/17 01/29/17 01/29/17 07:00 15:00 23:00 07:00 15:00 23:00 Intake Total 0 ml 0 ml 0 ml Balance 0 ml 0 ml 0 ml Intake Oral 0 ml 0 ml 0 ml # Voids 2 3 3 1 # Bowel Movements 0 8 4 0 Result Diagram: 01/27/17 0538 01/27/17 0538 Imaging Last Impressions Chest X-Ray 01/26/17 0422 Signed Impressions: Service Date/Time: Thursday, January 26, 2017 04:18 - CONCLUSION: No acute cardiopulmonary disease identified. Sukhdev Cash MD Abdomen/Pelvis CT 01/26/17 0000 Signed Impressions: Service Date/Time: Thursday, January 26, 2017 05:32 - CONCLUSION: Mild fluid filled dilatation of multiple mid small bowel loops with a transition point and decompressed distal small bowel. Findings are suspicious for early small bowel obstruction. Sukhdev Cash MD Objective Remarks GENERAL: AOx3, NAD. SKIN: Warm and dry. HEAD: Normocephalic. EYES: No scleral icterus. No injection or drainage. NECK: Supple, trachea midline. No JVD or lymphadenopathy. CARDIOVASCULAR: Regular rate and rhythm without murmurs, gallops, or rubs. RESPIRATORY: Breath sounds equal bilaterally. No accessory muscle use. GASTROINTESTINAL: Abdomen firm, somewhat distended and tender to palpation joe over lower quadrants. No appreciable bowel sound. MUSCULOSKELETAL: No cyanosis, or edema. BACK: Nontender without obvious deformity. No CVA tenderness. Procedures None. A/P Problem List: (1) Small bowel obstruction, partial ICD Code: K56.69 Status: Acute (2) Tobacco abuse ICD Code: Z72.0 Status: Acute Assessment and Plan Ms. Mclean is a pleasant 56-year-old female with no significant medical history who presented to the emergency department on 01/26/2017 due to abdominal pain and vomiting that started on 01/25/2017. Patient denies any chest pain, shortness of breath, fever or chills. Electrolytes within normal range. CBC indicated leukocytosis with WBC count 14.9. Patient was started on Cipro, Flagyl, IV fluid. CT abdomen pelvis indicated early small bowel obstruction. - Small bowel obstruction - Etiology unknown. Patient has a history of tubal ligation in the past. Colonoscopy 6 years ago. - Continue IV fluid normal saline at 100 cc per hour. - We'll continue antibiotics Cipro and Flagyl for now. - Surgery following. - Small bowel follow through in progress. Hopefully this results in bowel movement and resolution of SBO. - Zofran for nausea/vomiting. Morphine for pain. - Tobacco abuse - counseled patient regarding tobacco cessation. Full code. SCDs, Ambulation. Gretta Abad DO Jan 29, 2017 7:42 am
--- NOTE | 2017-01-29 08:39 | RADRPT ---
EXAM DATE/TIME: 01/28/2017 09:00 [facility] COMPARISON: CT ABDOMEN & PELVIS W CONTRAST, January 26, 2017, 5:32. INDICATIONS : Obstruction. FLUORO TIME: 0 minutes IMAGE COUNT: 6 CONTRAST: [facility] IMAGING TIME(S): 15 min, 30 min, 45 min, 1 hr MEDICAL HISTORY : None. SURGICAL HISTORY : Tubal ligation. ENCOUNTER: Initial ACUITY: 4 - 6 days PAIN SCORE: 4/10 LOCATION: Bilateral lower quadrant abdomen FINDINGS: The enrolled agent film reveals dilated small bowel in the left mid abdomen. There appears to be spill in col on. The colon is not distended. Free air is not seen. Gastrografin was administered orally. For the first hour and 30 minutes the contrast primarily was r etained within the stomach. Minimal activity is seen in the proximal duodenum on the 1 hour 30 minut e image. Dilated small bowel seen in the left mid abdomen on the 3 hour image. On the 4 hour image contrast is identified within the ileum that appears borderline distended. On the 7 hour image contr ast clearly identified within a non-distended colon. CONCLUSION: 1. Dilated small and large bowel. Some degree of ileus could have this appearance. A transition po int to confirm an area of obstruction is not clearly identified. A partial obstruction in the distal aspect of the small bowel could have a similar appearance. 2. Retention of much of the contrast within the stomach for the first hour and a half. Brody Carson MD on January 28, 2017 at 16:16 Board Certified Radiologist. This report was verified electronically.
[2017-01-29] MEDS: CIPROFLOXACIN 400 MG PREMIX 200 ML IV SCH (10:09)
[2017-01-29] MEDS: DOCUSATE SODIUM 50 MG/SENNA 8.6 MG TAB PO SCH (10:09)
[2017-01-29] MEDS: PANTOPRAZOLE SODIUM 40 MG VIAL IV PUSH SCH (10:09)
[2017-01-29] MEDS: SODIUM CHLORIDE 0.9% FLUSH 10 ML FLUSH IV FLUSH SCH (10:12)
[2017-01-29 11:14] LABS: AUTOMATED NEUTROPHIL # 7.6 TH/MM3 (1.8-7.7); BASOPHIL % 0.3 % (0.0-2.0); EOSINOPHIL # 0.4 TH/MM3 (0-0.4); EOSINOPHIL % 3.6 % (0.0-4.0); HEMATOCRIT 38.2 % (35.0-46.0); HEMO FLAGS DIFF FINAL; LYMPH % 18.1 % (9.0-44.0); LYMPHOCYTE # 1.9 TH/MM3 (1.0-4.8); MEAN CELL VOLUME 94.5 FL (80.0-100.0); MEAN CORPUSCULAR HEMOGLOBIN 31.7 PG (27.0-34.0); MEAN CORPUSCULAR HGB CONC 33.6 % (32.0-36.0); MONO % 6.7 % (0.0-8.0); NEUT % 71.3 % (16.0-70.0); PLATELET COUNT 255 TH/MM3 (150-450); RED BLOOD COUNT 4.05 MIL/MM3 (4.00-5.30); RED CELL DISTRIBUTION WIDTH 14.6 % (11.6-17.2); WHITE BLOOD COUNT 10.7 TH/MM3 (4.0-11.0)
[2017-01-29] MEDS ORDERED: CIPR-9 PO (11:28)
[2017-01-29] MEDS ORDERED: METR-1 PO (11:28)
--- NOTE | 2017-01-29 11:30 | HHI.DS ---
Discharge Summary Admission Date Jan 26, 2017 at 6:20 am Discharge Date: Jan 29, 2017 Admitting Diagnosis vomiting; early sbo (1) Small bowel obstruction, partial ICD Code: K56.69 (2) Tobacco abuse ICD Code: Z72.0 Procedures None. Brief History - From Admission Ms. Mclean is a pleasant 56-year-old female with no significant medical history who presented to the emergency department on 01/26/2017 due to abdominal pain and vomiting. On 01/25/2017 at around 8:30 PM after dinner patient started having stabbing lower abdominal pain radiating to her back as well as nausea and vomiting. After initial nausea vomiting she felt slightly better but her symptoms returned. She vomited about 6 times. Due to persistent symptoms patient decided to come to the emergency department. Her last bowel movement was on or Friday (01/23 or 01/24/2017). Electrolytes within normal range. CBC indicated leukocytosis with WBC count 14.9. Patient was started on Cipro, Flagyl, IV fluid. CT abdomen pelvis indicated early small bowel obstruction. Patient denies any chest pain, shortness of breath, fever or chills. Denies any changes in bladder habits. Currently she does not have nausea or vomiting and pain is well controlled. CBC/BMP: 01/29/17 1047 01/27/17 0538 Significant Findings Laboratory Tests Test 01/27/17 01/29/17 05:38 10:47 White Blood Count 14.9 TH/MM3 (4.0-11.0) Red Blood Count 3.91 MIL/MM3 (4.00-5.30) Neutrophils # (Auto) 10.3 TH/MM3 (1.8-7.7) Monocytes # (Auto) 1.1 TH/MM3 (0-0.9) Chloride Level 108 MEQ/L (98-107) Calcium Level 8.4 MG/DL (8.5-10.1) Total Protein 6.2 GM/DL (6.4-8.2) Albumin 3.2 GM/DL (3.4-5.0) Neutrophils (%) (Auto) 71.3 % (16.0-70.0) Imaging Last Impressions Chest X-Ray 01/26/17 0422 Signed Impressions: Service Date/Time: Thursday, January 26, 2017 04:18 - CONCLUSION: No acute cardiopulmonary disease identified. Sukhdev Cash MD Abdomen/Pelvis CT 01/26/17 0000 Signed Impressions: Service Date/Time: Thursday, January 26, 2017 05:32 - CONCLUSION: Mild fluid filled dilatation of multiple mid small bowel loops with a transition point and decompressed distal small bowel. Findings are suspicious for early small bowel obstruction. Sukhdev Cash MD PE at Discharge GENERAL: AOx3, NAD. SKIN: Warm and dry. HEAD: Normocephalic. EYES: No scleral icterus. No injection or drainage. NECK: Supple, trachea midline. No JVD or lymphadenopathy. CARDIOVASCULAR: Regular rate and rhythm without murmurs, gallops, or rubs. RESPIRATORY: Breath sounds equal bilaterally. No accessory muscle use. GASTROINTESTINAL: Abdomen firm, somewhat distended and tender to palpation joe over lower quadrants. No appreciable bowel sound. MUSCULOSKELETAL: No cyanosis, or edema. BACK: Nontender without obvious deformity. No CVA tenderness. Pt update on day of discharge Patient is doing well. No acute concerns. She had bowel movements yesterday and today. She wants to go home. Hospital Course Ms. Mclean is a pleasant 56-year-old female with no significant medical history who presented to the emergency department on 01/26/2017 due to abdominal pain and vomiting that started on 01/25/2017. Patient denies any chest pain, shortness of breath, fever or chills. Electrolytes within normal range. CBC indicated leukocytosis with WBC count 14.9. Patient was started on Cipro, Flagyl, IV fluid. CT abdomen pelvis indicated early small bowel obstruction. - Small bowel obstruction - Etiology unknown. Patient has a history of tubal ligation in the past. Colonoscopy 6 years ago. - Received IV fluid normal saline at 100 cc per hour. - Received antibiotics Cipro and Flagyl. Will continue for 3 more days post discharge. - Surgery followed this patient for possible surgical intervention. No surgical intervention required. - Small bowel follow through done. Patient had multiple bowel movements. SBO resolved. - Zofran for nausea/vomiting. Morphine for pain. - Tobacco abuse - counseled patient regarding tobacco cessation. Full code. SCDs, Ambulation. Pt Condition on Discharge: Good Discharge Disposition: Discharge Home Discharge Time: > 30 minutes Discharge Instructions DIET: Follow Instructions for: As Tolerated, No Restrictions Additional Diet Instructions: Gradually advance diet. Activities you can perform: Regular-No Restrictions Follow up Referrals: PCP Follow-up - 1 Week New Medications: Ciprofloxacin (Cipro) 500 Mg Tab 500 MG PO BID Infection #6 Ref 0 TAB Metronidazole (Flagyl) 500 Mg Tab 500 MG PO TID Infection #9 Ref 0 TAB Continued Medications: Multiple Vitamin (Multi Vitamin Daily) 1 Tab Tab Gretta Abad DO Jan 29, 2017 11:30
[2017-01-29 12:00] VITALS: BP 98/58; PULSE 74; RESP 18; TEMP 97.2; O2SAT 100
[2017-01-29 12:12] LABS: ALKALINE PHOSPHATASE 56 U/L (45-117); ALT (GPT) 23 U/L (10-53); ANION GAP 8 MEQ/L (5-15); AST (GOT) 41 U/L (15-37); BICARBONATE 26.5 MEQ/L (21.0-32.0); BLOOD UREA NITROGEN 12 MG/DL (7-18); CHLORIDE 109 MEQ/L (98-107); GLOMERULAR FILTRATION RATE 102 ML/MIN (>89); POTASSIUM 3.6 MEQ/L (3.5-5.1); SODIUM (NA) 143 MEQ/L (136-145); TOTAL BILIRUBIN ADULT 0.4 MG/DL (0.2-1.0)
--- NOTE | 2017-01-29 12:26 | HHI.PR ---
Subjective Subjective Notes Up to chair Several liquid BMs overnight Resolution of abdominal pain Objective Vitals/I&O Vital Signs Date Time Temp Pulse Resp B/P Pulse Ox O2 Delivery O2 Flow Rate FiO2 01/29/17 12:00 97.2 74 18 98/58 100 01/27/17 08:14 Nasal Cannula 01/26/17 06:00 2 Labs Laboratory Tests Test 01/29/17 10:47 White Blood Count 10.7 Red Blood Count 4.05 Hemoglobin 12.8 Hematocrit 38.2 Mean Corpuscular Volume 94.5 Mean Corpuscular Hemoglobin 31.7 Mean Corpuscular Hemoglobin 33.6 Concent Red Cell Distribution Width 14.6 Platelet Count 255 Mean Platelet Volume 9.7 Neutrophils (%) (Auto) 71.3 Lymphocytes (%) (Auto) 18.1 Monocytes (%) (Auto) 6.7 Eosinophils (%) (Auto) 3.6 Basophils (%) (Auto) 0.3 Neutrophils # (Auto) 7.6 Lymphocytes # (Auto) 1.9 Monocytes # (Auto) 0.7 Eosinophils # (Auto) 0.4 Basophils # (Auto) 0.0 CBC Comment DIFF FINAL Differential Comment Sodium Level 143 Potassium Level 3.6 Chloride Level 109 Carbon Dioxide Level 26.5 Anion Gap 8 Blood Urea Nitrogen 12 Creatinine 0.61 Estimat Glomerular Filtration 102 Rate Random Glucose 97 Calcium Level 8.6 Total Bilirubin 0.4 Aspartate Amino Transf 41 (AST/SGOT) Alanine Aminotransferase 23 (ALT/SGPT) Alkaline Phosphatase 56 Total Protein 6.3 Albumin 3.1 Radiology Last 48 hours Impressions Chest X-Ray 01/26/17 0422 Signed Impressions: Service Date/Time: Thursday, January 26, 2017 04:18 - CONCLUSION: No acute cardiopulmonary disease identified. Sukhdev Cash MD Abdomen/Pelvis CT 01/26/17 0000 Signed Impressions: Service Date/Time: Thursday, January 26, 2017 05:32 - CONCLUSION: Mild fluid filled dilatation of multiple mid small bowel loops with a transition point and decompressed distal small bowel. Findings are suspicious for early small bowel obstruction. Sukhdev Cash MD Cardiovascular: Regular Lungs: Clear Abdomen: Non-distended, Non-tender Extremities: No edema A/P Assessment and Plan 56 year old female with SBO -SBFT today---contrast slowly moving through -Recommend Full Liquid diet x 24 hours; then advance to soft diet from there -Pain control -OOB and mobilize as tolerated Attending Statement patient seen at bedside as above +bms no pain Attestation The exam, history, and the medical decision-making described in the above note were completed with the assistance of the mid-level provider. I reviewed and agree with the findings presented. I attest that I had a [id number] encounter with the patient on the same day, and personally performed and documented my assessment and findings in the medical record. Lora Miller Jan 29, 2017 12:26 Bradly Wall MD Feb 04, 2017 22:47
== END 2017-01-29 16:35 | disposition home or self-care (01) | DRG 390 ==
LOC: NEPC 04:14 → NEDA 06:20 → N06B 07:53
PROVIDERS: ADMIT Hospitalist; ATTEND Hospitalist
DX: K56.60 Unspecified intestinal obstruction (principal); F17.210 Nicotine dependence, cigarettes, uncomplicated
CPT/HCPCS: 71010; 74177; 74250; 80053; 81001; 83690; 85025; 93005; 96361; 96374; 96375; 96376; C9113; J0744; J2270; J2405; J7030; Q9963; Q9967